=== PATIENT | male | born 1965 | race Caucasian/White ===

== ENCOUNTER → 2017-04-01 | Outpatient (CLI) | payer OTHER | END | disposition home or self-care (01) | LOC: PPH VACUNA 12:40 | DX: Z23 Encounter for immunization (principal) ==

== ENCOUNTER 2017-05-18 08:40 | Outpatient (CLI) | payer OTHER | END 2017-05-18 08:50 | disposition home or self-care (01) | LOC: LAB 08:40 | DX: D64.9 Anemia, unspecified (principal); E78.2 Mixed hyperlipidemia; E11.9 Type 2 diabetes mellitus without complications; E03.8 Other specified hypothyroidism; R97.20 Elevated prostate specific antigen [PSA] ==

== ENCOUNTER 2019-08-10 09:26 | Outpatient (CLI) | payer OTHER | END 2019-08-10 15:00 | disposition home or self-care (01) | LOC: LAB 09:26 | PROVIDERS: ATTEND Internal Medicine | DX: D64.89 Other specified anemias (principal); E11.9 Type 2 diabetes mellitus without complications; E78.2 Mixed hyperlipidemia; I10 Essential (primary) hypertension; E03.8 Other specified hypothyroidism; E55.9 Vitamin D deficiency, unspecified; R97.20 Elevated prostate specific antigen [PSA]; R29.898 Other symptoms and signs involving the musculoskeletal system ==

== ENCOUNTER 2019-11-06 09:00 | Outpatient (CLI) | payer OTHER | END 2019-11-06 15:00 | disposition home or self-care (01) | LOC: PPH VACUNA 09:00 | DX: Z23 Encounter for immunization (principal) ==

== ENCOUNTER 2020-11-17 08:00 | Outpatient (CLI) | payer OTHER | END 2020-11-17 08:30 | disposition home or self-care (01) | LOC: PPH VACUNA 08:00 | PROVIDERS: ATTEND Emergency Medicine Pediatric Emergency Medicine | DX: Z23 Encounter for immunization (principal) ==

== ENCOUNTER 2020-12-15 09:42 | Outpatient (CLI) | payer OTHER | END 2020-12-15 09:49 | disposition home or self-care (01) | LOC: PPH VACUNA 09:42 | PROVIDERS: ATTEND Emergency Medicine Pediatric Emergency Medicine | DX: Z23 Encounter for immunization (principal) ==

== ENCOUNTER 2021-06-10 08:00 | Outpatient (CLI) | payer OTHER | END 2021-06-10 08:30 | disposition home or self-care (01) | LOC: PPH VACUNA 08:00 | PROVIDERS: ATTEND Emergency Medicine Pediatric Emergency Medicine | DX: Z23 Encounter for immunization (principal) ==

== ENCOUNTER 2021-11-27 14:48 | Outpatient (CLI) | payer OTHER | END 2021-11-27 14:49 | disposition home or self-care (01) | LOC: PPH VACUNA 14:48 | PROVIDERS: ATTEND Emergency Medicine Pediatric Emergency Medicine | DX: Z23 Encounter for immunization (principal) ==

== ENCOUNTER → 2021-12-09 10:06 | Outpatient (CLI) | payer OTHER | END | disposition home or self-care (01) | LOC: LAB 10:06 | DX: N40.0 Benign prostatic hyperplasia without lower urinary tract symptoms (principal); R97.20 Elevated prostate specific antigen [PSA] ==

== ENCOUNTER 2022-02-12 11:46 | Outpatient (CLI) | payer OTHER | END 2022-02-12 11:56 | disposition home or self-care (01) | LOC: PPH VACUNA 11:46 | PROVIDERS: ATTEND Emergency Medicine Pediatric Emergency Medicine | DX: Z23 Encounter for immunization (principal) ==

== ENCOUNTER 2022-11-12 13:53 | Outpatient (CLI) | payer OTHER | END 2022-11-12 14:03 | disposition home or self-care (01) | LOC: PPH VACUNA 13:53 | PROVIDERS: ATTEND Emergency Medicine Pediatric Emergency Medicine | DX: Z23 Encounter for immunization (principal) | CPT/HCPCS: 90686; G0008 ==

== ENCOUNTER 2023-12-19 08:50 | Outpatient (CLI) | payer OTHER | END 2023-12-19 09:00 | disposition home or self-care (01) | LOC: PPH VACUNA 08:50 | PROVIDERS: ATTEND Emergency Medicine Pediatric Emergency Medicine | DX: Z23 Encounter for immunization (principal) ==